=== PATIENT | female | born 2000 | race Asian ===

== ENCOUNTER 2021-08-04 14:13 | Outpatient (REF) | payer BC, SELFPAY ==
--- NOTE | ~2021-08-04 | US_ITS ---
EXAMINATION: US DIAGNOSTIC ULTRASOUND BREAST, RIGHT CLINICAL INFORMATION: Right breast lump for 2 months. COMPARISON: None. TECHNIQUE: Ultrasound of the breast is performed with real-time villaseñor scale imaging and color Doppler. FINDINGS: In the region of palpable abnormality 3 o'clock right breast there is a 3.1 x 2.3 x 5.0 cm hypoechoic well-circumscribed mass with some internal vascularity. The mass is wider than it is tall. There is some increased through sound transmission present. This has the appearance of a large fibroadenoma. No edematous change within breast parenchyma is identified. No suspicious shadowing mass is noted. Ultrasound-guided core biopsy is recommended. Results are discussed with the patient at time of visit. Breast center navigator called referring provider's office with the above recommendation. US/US breast RT limited IMPRESSION: Palpable abnormality corresponds to a solid mass measuring 3.1 x 2.3 x 5.0 cm in size and for which ultrasound-guided core biopsy is recommended. ASSESSMENT: BI-RADS 4: Suspicious RECOMMENDATION: Right breast ultrasound-guided biopsy.
== END 2021-08-04 14:14 | disposition home or self-care (01) ==
LOC: HO.MAMMO 14:13
PROVIDERS: Visit Provider Nurse Practitioner Family
DX: N63.14 Unspecified lump in the right breast, lower inner quadrant (principal)
CPT/HCPCS: 76642